=== PATIENT | male | born 1950 | race Caucasian/White ===

== ENCOUNTER 2020-02-03 11:37 | Emergency (ER) | payer OTHER ==
[~2020-02-03] VITALS: Ht 170.2 cm; Wt 68.0 kg
[2020-02-03 12:34] LABS: ABSOLUTE NEUTROPHILS 3.8 thou/uL (1.4-8.2); BASOPHILS 0.6 % (0.0-2.0); EOSINOPHILS 0.8 % (0.0-3.0); HEMATOCRIT 32.4 % (42.0-52.0); HEMOGLOBIN 11.3 gm/dL (14.0-18.0); LYMPHOCYTES 12.9 % (24.0-44.0); MCH 38.7 pg (26.0-34.0); MCHC 34.9 g/dL (28.0-37.0); MCV 111.1 fL (80.0-100.0); MONOCYTES 6.1 % (1.0-8.0); PLATELET COUNT 105 thou/uL (150-400); POLYS 79.6 % (36.0-66.0); RBC 2.91 mil/uL (4.50-6.00); WBC 4.7 thou/uL (4.0-11.0)
[2020-02-03 12:43] LABS: CALCIUM 8.4 mg/dL (8.5-10.1); CREATININE 1.1 mg/dL (0.7-1.3); POTASSIUM 4.7 mmol/L (3.5-5.1)
[2020-02-03 12:56] LABS: ALBUMIN 2.9 g/dL (3.4-5.0); DIRECT BILIRUBIN 0.1 mg/dL (<0.1-0.2); TOTAL BILIRUBIN 0.7 mg/dL (0.2-1.0); TOTAL PROTEIN 6.8 g/dL (6.4-8.2)
[2020-02-03 13:08] LABS: MACROCYTES 3+
[2020-02-03 14:26] LABS: URINE BILIRUBIN NEGATIVE (Negative); URINE BLOOD NEGATIVE (Negative); URINE CLARITY CLEAR; URINE COLOR YELLOW; URINE GLUCOSE-RANDOM* TRACE (Negative); URINE KETONES NEGATIVE (Negative); URINE LEUKOCYTES-REFLEX NEGATIVE (Negative); URINE NITRITE-REFLEX NEGATIVE (Negative); URINE PROTEIN (DIPSTICK) NEGATIVE (Negative); URINE SPECIFIC GRAVITY >= 1.030 (1.005-1.035); URINE UROBILINOGEN 0.2 E.U./dl (0.2-1.0)
[2020-02-03 16:25] VITALS: BP 140/84
--- NOTE | 2020-02-05 08:42 | EKG ---
[facility] [address] [address] [place] [address] ELECTROCARDIOGRAM REPORT Name: LOYD CHAVARRIA Room #: DEP [facility]#: [id number] Admission: 02/03/20 Attend Phys: Discharge: 02/03/20 Date of : 52 Report #: [id number] THIS REPORT FOR: cc: Wes Chambers David J. DO Lundgren, Craig H. MD [facility] ~ THIS REPORT FOR: //name// [facility] ED Test Date: 2020-02-03 Test Time: 12:29:54 Pat Name: LOYD CHAVARRIA Department: Room: Gender: Computer Meteorologist: KKMCKENZIE : 1950 Requested By: Josefina Mcbride Order Number: [id number] MD: Mac Greenwood Measurements Intervals [place] Rate: 83 P: 43 [place]: 211 QRS: 39 QRSD: 90 T: 48 QT: 364 QTc: 428 Interpretive Statements Sinus rhythm Abnormal R-wave progression, early transition Compared to ECG 08/24/2007 02:15:36 Atrial fibrillation no longer present Electronically Signed On 02-05-2020 8:40:25 CDT by Mac Greenwood [email or web address] <ELECTRONICALLY SIGNED> By: Mac Greenwood MD, FACC 02/05/20 0840 1229 1229 Mac Greenwood MD, [facility] /EPI
== END 2020-02-03 16:25 | disposition home or self-care (01) ==
LOC: ER 11:37
PROVIDERS: Emergency Medicine
DX: S22.088A Other fracture of T11-T12 vertebra, initial encounter for closed fracture (principal); I95.1 Orthostatic hypotension; E87.1 Hypo-osmolality and hyponatremia; R22.41 Localized swelling, mass and lump, right lower limb; W18.30XA Fall on same level, unspecified, initial encounter; Y93.89 Activity, other specified; Y92.89 Other specified places as the place of occurrence of the external cause; Y99.9 Unspecified external cause status

== ENCOUNTER 2020-04-03 16:14 | Inpatient (IN) | payer OTHER ==
[~2020-04-03] VITALS: Ht 175.3 cm; Wt 66.4 kg
[2020-04-03 16:34] VITALS: BP 116/71
[2020-04-03] MEDS ORDERED: NOHOMEMEDICATIONS (16:45)
[2020-04-03 17:53] LABS: HEMATOCRIT 25.5 % (42.0-52.0); HEMOGLOBIN 8.9 gm/dL (14.0-18.0); MCH 41.9 pg (26.0-34.0); MCHC 35.1 g/dL (28.0-37.0); MCV 119.4 fL (80.0-100.0); PLATELET COUNT 113 thou/uL (150-400); RBC 2.13 mil/uL (4.50-6.00); RDW 16.2 % (10.5-14.5); WBC 4.2 thou/uL (4.0-11.0)
[2020-04-03 18:07] LABS: CALCIUM 8.1 mg/dL (8.5-10.1); CREATININE 1.2 mg/dL (0.7-1.3); POTASSIUM 3.7 mmol/L (3.5-5.1)
[2020-04-03 18:13] LABS: ALBUMIN 2.2 g/dL (3.4-5.0); TOTAL BILIRUBIN 2.5 mg/dL (0.2-1.0)
[2020-04-03 18:18] LABS: ABSOLUTE NEUTROPHILS 3.4 thou/uL (1.4-8.2); ANISOCYTOSIS 1+
[2020-04-03 18:19] LABS: MACROCYTES 2+; POLYCHROMASIA OCCASIONAL
[2020-04-03 18:22] LABS: URINE BILIRUBIN 2+ (Negative); URINE BLOOD NEGATIVE (Negative); URINE CLARITY CLEAR; URINE COLOR ORANGE; URINE GLUCOSE-RANDOM* 3+ (Negative); URINE KETONES NEGATIVE (Negative); URINE LEUKOCYTES-REFLEX NEGATIVE (Negative); URINE NITRITE-REFLEX NEGATIVE (Negative); URINE PROTEIN (DIPSTICK) NEGATIVE (Negative); URINE UROBILINOGEN >= 8.0 E.U./dl (0.2-1.0)
[2020-04-03 18:26] LABS: ICTOTEST (BILI CONFIRMATORY) Positive (Negative)
[2020-04-03 18:37] LABS: BACTERIA-REFLEX 1-9 Few /HPF (None Seen); CASTS None Seen /LPF (None Seen); CRYSTALS None Seen /LPF (None Seen); SQUAMOUS 0-3 Few /LPF (0-3); URINE RBC None Seen /HPF (0-2); URINE WBC-REFLEX None Seen /HPF (0-5)
[2020-04-03 19:50] LABS: CHOLESTEROL 145 mg/dL (<200); HDL CHOLESTEROL 5 mg/dL (>40); LDL CHOLESTEROL 111 mg/dL (<100); TRIGLYCERIDE 148 mg/dL (<150); VLDL 30 mg/dL (<40)
[2020-04-03 20:10] VITALS: BP 116/71
[2020-04-03 20:36] VITALS: BP 140/85
[2020-04-03 20:55] VITALS: BP 124/71
--- NOTE | 2020-04-04 05:00 | NUR ---
Pt admitted approx 2044 from ED via cart. A/OX4,pleasant and cooperative with cares. VSS. Denied pain on assessment. Pt reports he has not been able to walk for about a month d/t weakness but normally uses a RW to ambulate prior to that,has a sore on left buttock d/t sitting down for long periods;wound care done and dressed in foam dsg, wound care cordinator consulted. Pt voiding per urinal w/o any problems. IVF infusing via LFA,needs a lot of encouragement for PO intake w/o success d/t no desire to eat. SR on telemetry. Fall precautions implemented,pt reminded to call before attempting to get up from bed and agrees to. Will continue to monitor pt.
--- NOTE | 2020-04-04 07:34 | EKG ---
[facility] [place] [address] [place] [address] ELECTROCARDIOGRAM REPORT Name: LOYD CHAVARRIA Room #: 460-P ADM IN M.R.#: [id number] Admission: 04/03/20 Attend Phys: Ghulam Mujica MD Discharge: Date of : 52 Report #: [id number] THIS REPORT FOR: cc: Wes Chambers David J. DO Lundgren, Craig H. MD [facility] ~ THIS REPORT FOR: //name// [facility] ED Test Date: 2020-04-03 Test Time: 17:01:54 Pat Name: LOYD CHAVARRIA Department: Room: [facility] Gender: M Manager Financial Services: MURRAY ARRINGTON : 1950 Requested By: Edyta Garibay Order Number: [id number] MD: Mac Greenwood Measurements Intervals [place] Rate: 95 P: 40 CT: 193 QRS: 40 QRSD: 89 T: 39 QT: 348 QTc: 438 Interpretive Statements Sinus rhythm Nonspecific ST segment abnormality Baseline wander in lead(s) V4 Compared to ECG 02/03/2020 12:29:54 No significant change was found Electronically Signed On 04-04-2020 7:33:46 CDT by Mac Greenwood [email or web address] <ELECTRONICALLY SIGNED> By: Mac Greenwood MD, [facility] 04/04/20 0733 1701 170 Mac Greenwood MD, [facility] /EPI
[2020-04-04 07:50] VITALS: BP 130/67
[2020-04-04 08:06] LABS: HEMATOCRIT 25.7 % (42.0-52.0); HEMOGLOBIN 8.9 gm/dL (14.0-18.0); MCH 41.5 pg (26.0-34.0); MCHC 34.5 g/dL (28.0-37.0); MCV 120.3 fL (80.0-100.0); RBC 2.14 mil/uL (4.50-6.00); RDW 16.3 % (10.5-14.5); WBC 2.9 thou/uL (4.0-11.0)
[2020-04-04 08:15] LABS: CALCIUM 7.8 mg/dL (8.5-10.1); CREATININE 0.7 mg/dL (0.7-1.3); MAGNESIUM 1.3 mg/dL (1.8-2.4); POTASSIUM 3.2 mmol/L (3.5-5.1)
--- NOTE | 2020-04-04 10:38 | NUR ---
WOUND CONSULT; THE WOUND WAS ASSESSED BY MYSELF AND AURELIO MCGILL. THERE IS A .5 X .5 X 0.1 TO THE RIGHT BUTTOCKS. SCANT AMOUT OF SEROUS DRAINAGE. NO ERYTHEMA OR TENDERNESS. THE PATIENTS HEALTH HAS BEEN IN DECLINE FOR A MONTH OR SO PATIENT STATES AND HE HAS BEEN IN BED ALL THE TIME. RECOMMENDATION; 1- XEROFORM GAUZE TO WOUND BED,COVER WITH A SMALL BORDER FOAM, M/W/F PRN DISCUSSED WITH WYATT
[2020-04-04 12:35] LABS: % SATURATION 113 % (20-39); IRON 103 ug/dL (65-175); TIBC 91 ug/dL (250-450)
[2020-04-04 12:38] LABS: INR 1.1; PROTIME 11.3 Seconds (9.3-11.4)
--- NOTE | 2020-04-04 13:40 | NUR ---
PT ADMITTED RELATED TO HYPONATREMIA. CM REVIEWED CHART AND SPOKE WITH CARE TEAM. CM CALLED AND SPOKE WITH PT THIS DAY. PT APPEARED TO BE A&O X4. CM ROLE INTORDUCED. PT INDICATED HE LIVES ALONE IN A HOUSE WITH 2 STEPS TO ENTER AND NO STEPS HE USES INSIDE. 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 PT INDICATED HIS SON MALAIKA CHECKS ON HIM REGULARLY. PT INIDCATED NO HH HX. PT INDICATED HE HAD BEEN ABLE TO TOILET HIMSELF REFRIGERATION SYSTEM INSTALLER BUT HAD STOPPED USING TUB/SHOWER DUE TO FEAR OF FALLING NEEDS SHOWER CHAIR. PT INIDCATED HE PLANS TO RETURN HOME ONCE MEDICALLY STABLE AND MIGHT BE RECEPTIVE TO HH SERVICES UPON DC. CM TO FOLLOW INDICATED WITH DC PLANNING.
[2020-04-04 15:00] VITALS: BP 122/70
--- NOTE | 2020-04-04 19:29 | NUR ---
ASSUMED CARE OF PATIENT AT 0700. ASSESSMENT COMPLETED. PATIENT DENIES ANY TREMORS, ANXIOUSNESS OR HEADACHE. ACCU CHECK AC&HS WITH SUPPLEMENTATION OF INSULIN AT DINNER. MAGNESIUM REPLACED. SEEN BY WOUND CARE. WORKED WITH PT/OT. PT TO GO NPO AT MIDNIGHT FOR ANTICIPATION OF US AND EGD TOMORROW. PATIENT DENIES ANY PAIN OR DISCOMFORT. PATIENT TO CONTINUE WITH POC.
[2020-04-04 19:45] VITALS: BP 106/89
[2020-04-05 00:06] LABS: HAV IgM AB (ANTI-HAV IgM) Negative (Negative); HEPATITIS B SURFACE AG Negative (Negative); HEPATITIS C VIRUS AB 0.1 (0.0-0.9)
--- NOTE | 2020-04-05 04:14 | NUR ---
ASSUMED CARE OF PT AT 1900HRS. PT AOX4 ADN LETS NEEDS BE KNOWN. FALL PRECAUTION IN PLACE. PT DENIED PAIN, NAUSEA OR SOA. PT RUNNING SR ON TELE. PT PLACED NPO AT IN FOR PROCEDURE IN THE AM. VSS AND NO S/S OF ETOH WITHDRAWAL AT THIS TIME. WILL CONTINUE TO MONITOR FOR CHANGES.
[2020-04-05 05:07] LABS: IgG 1155 mg/dL (603-1613)
[2020-04-05 05:16] VITALS: BP 131/81
[2020-04-05 06:03] LABS: ALBUMIN 1.8 g/dL (3.4-5.0); CALCIUM 7.8 mg/dL (8.5-10.1); CREATININE 0.9 mg/dL (0.7-1.3); DIRECT BILIRUBIN 1.4 mg/dL (<0.1-0.2); POTASSIUM 3.4 mmol/L (3.5-5.1); TOTAL PROTEIN 5.4 g/dL (6.4-8.2)
[2020-04-05 07:32] VITALS: BP 136/76
[2020-04-05 09:28] VITALS: BP 136/76
[2020-04-05 11:56] VITALS: BP 141/74
[2020-04-05 13:08] LABS: ANA INTERPRETATION Negative (Negative)
--- NOTE | 2020-04-05 15:12 | NUR ---
PT HAD EGD THIS DAY. CARE TEAM INDICATED THAT PT WOULD BENEFIT FROM HOME HEALTH SERVICES. PT INDICATED NO PREFERENCE FOR PROVIDER SO REFERRAL WAS SENT TO [facility]. CARE TEAM INDICATED THAT PT WILL LIKELY BE MEDICALLY BE MEDIALLY STABLE TO [place] HOME TOMORROW. FAX ORDERS TO CALL . PT HAS ALL RECOMMENDED DME. PT PROVIDED WITH INFO TO WHERE TO GET A SHOWER CHAIR/BENCH. CM ABLE TO ASSIST SHOULD ANY OTHER CM INTERVENTION BE NEEDED.
--- NOTE | 2020-04-05 15:26 | NUR ---
ASSUMED CARE OF PATIENT AT SHIFT CHANGE. ASSESSMENT CHARTED. VSS. PATIENT DENIES PAIN AT THIS TIME. PATIENT WENT DOWN FOR AN EGD TODAY. RETURNED TO UNIT AT APPROX. 1500.
[2020-04-05 16:06] LABS: CERULOPLASMIN 20.7 mg/dL (16.0-31.0)
[2020-04-05 16:33] VITALS: BP 128/77
[2020-04-05 20:49] VITALS: BP 123/100
--- NOTE | 2020-04-06 05:52 | NUR ---
ASSUMED PT CARE AT 1925. PT IS A&O X4. IV IN THE L FOREARM. PT BS WAS 150, NO INDICATION FOR INSULIN. PT STATES THAT HE IS NOT IN PAIN. PT IS ON TALKING TO FAMILY/FRIENDS ON THE COMPUTER. PT IS RESTING IN HIS ROOM. WILL CONTINUE TO MONITOR.
[2020-04-06 06:33] LABS: ALBUMIN 1.8 g/dL (3.4-5.0); CALCIUM 7.8 mg/dL (8.5-10.1); CREATININE 0.7 mg/dL (0.7-1.3); DIRECT BILIRUBIN 1.5 mg/dL (<0.1-0.2); POTASSIUM 3.5 mmol/L (3.5-5.1); TOTAL BILIRUBIN 2.3 mg/dL (0.2-1.0); TOTAL PROTEIN 5.2 g/dL (6.4-8.2)
[2020-04-06 07:49] VITALS: BP 140/74
[2020-04-06] MEDS ORDERED: PANTOPRAZOLE SO40 M1 PO (10:29)
[2020-04-06] MEDS ORDERED: PRENATAL PO (10:29)
[2020-04-06 11:30] VITALS: BP 140/74
--- NOTE | 2020-04-06 12:31 | NUR ---
Assumed pt care this am, VS stable diet and medications are tolerated well. Insuling refused in the am, seen by hospitalist, son was at the beside. Wound care done but refused to reopen for dc pictures. POC followed with no signs or verbalizations of distress noted, SCD was placed on this am. Seen by hospitalist, dc orders given, instructions given to the pt and son. IV removed. Pt is now dc and was taken home by the son.
--- NOTE | 2020-04-09 17:06 | PATH ---
[facility] [place] [address] [address] [place] [address] PATHOLOGY RPT PROCEDURE Name: DANIEL FITZPATRICK Ralf Room #: 460-P DIS IN M.R.#: [id number] Admission: 04/03/20 Date of : 52 Discharge: 04/06/20 Report #: [id number] Path Case #: [id number] [facility] Accession Number: [id number] . 01 Material submitted: . stomach - BX OF GASTRITIS . 01 Clinical history: . r/o h pylori . 02 Diagnosis: Gastric mucosa, gastritis, rule out H. pylori, endoscopic biopsy: - Mild reactive gastropathy with scattered foci of chronic inflammation. - Negative for intestinal metaplasia or atrophy. - Negative for Helicobacter pylori (properly-controlled immunohistochemical stain performed). . (IUV:mml; 04/09/2020) QLM 04/09/2020 1443 Local . 02 Electronically signed: . Sandrita French MD, Pathologist NPI- [id number] . 01 Gross description: . The specimen is received in formalin, labeled "Daniel Fitzpatrick BX of gastritis" and consists of multiple fragments of simon tissue measuring 0.8 x 0.8 x 0.3 cm in aggregate which are entirely submitted in A1. (SDY; 04/08/2020) SYU/SYU 04/08/2020 1244 Local . 02 Pathologist provided ICD-10: K31.9, K29.50 . 02 CPT . 406046, U44007 Specimen Comment: A courtesy copy of this report has been sent to [phone], [phone] Specimen Comment: [phone], Specimen Comment: Report sent to , Dr. BALL / Performed at: [address] [id number] MD Aniket Ko MD Phone: [phone] Performed at: [address] [id number] [address] [address] PATHOLOGY RPT PROCEDURE Name: DANIEL FITZPATRICK Room #: 460-P DIS IN M.R.#: [id number] Admission: 04/03/20 Date of : 52 Discharge: 04/06/20 Report #: [id number] Path Case #: [id number] MD Sandrita French MD Phone: [phone]
--- NOTE | 2020-04-11 09:01 | P ---
[facility] [place] [address] [place] [address] PROCEDURE REPORT Name: LOYD CHAVARRIA Room #: 460-P [facility] IN ..#: [id number] Admission: 04/03/20 Attend Phys: Barrett Chaparro MD Discharge: 04/06/20 Date of : 52 Report #: [id number] THIS REPORT FOR: cc: Wes Chambers David J. DO Thesing, John A. MD ~ CC: Barrett Chambers DO INPATIENT UPPER ENDOSCOPY REPORT BRIEF HISTORY: The patient is a 70-year-old male with a history of alcohol abuse, who reports recent dark stools and he is anemic. PREOPERATIVE DIAGNOSES: Anemia and gastrointestinal blood loss and alcohol abuse. POSTOPERATIVE DIAGNOSES: 1. Moderately severe gastritis, likely secondary to alcohol. 2. No esophageal varices. MEDICATIONS: Deep sedation with propofol per Anesthesia. SPECIMEN: Biopsies of gastritis. ESTIMATED BLOOD LOSS: 3 mL. PROCEDURE: EGD with biopsy. FINDINGS: Prior to propofol sedation, procedure of upper endoscopy discussed with the patient as well as all potential risks and its complications. He indicates he understands and desires to proceed. DESCRIPTION OF PROCEDURE: With the patient in left lateral decubitus position, the Olympus video endoscope was inserted into the cervical esophagus under direct vision without difficulty. Examination of this organ through its entire length revealed normal esophageal mucosa down to the squamocolumnar junction. It is noteworthy that esophageal varices were not seen in this patient who abuses alcohol. The esophageal mucosa was normal. No ulcers or erosions were seen. No bleeding lesions were seen. Hiatus hernia was not seen. The scope was advanced into the stomach, was examined on end view as well as retroflexed views. There was a pattern of gastritis. The mucosa, however, was intact. No ulcers or erosions were seen. Upon retroflexion, no mass lesions were seen. A significant hiatus hernia was not seen. The pylorus, duodenal bulb and post-coronary sweep were inspected and noted to be unremarkable. At that point, the scope was slowly withdrawn and careful circumferential views confirmed the [facility] [address] [place] [address] PROCEDURE REPORT Name: LOYD CHAVARRIA Room #: 460-P [facility] IN M.R.#: [id number] Admission: 04/03/20 Attend Phys: Barrett Chaparro MD Discharge: 04/06/20 Date of : 52 Report #: [id number] above findings. The patient tolerated the procedure well. DISPOSITION: Multiple biopsies were obtained to evaluate his gastritis. I do not see bleeding lesions at this point in time. We will follow up on biopsies. Advised the patient to avoid use of alcohol. I do not see a source of GI blood loss. Colonoscopy would be beneficial in this patient as well. <ELECTRONICALLY SIGNED> By: Yaya Mahmood MD 04/11/20 0901 1432 1845 Yaya Mahmood MD /nt
== END 2020-04-06 12:36 | disposition home health service (06) | DRG 640 ==
LOC: ER 16:14 → EROBS 19:19 → 4W 19:19
PROVIDERS: Nurse Practitioner; Nurse Practitioner Family; Physician Assistant; ADMIT Hospitalist; ATTEND Hospitalist
PROC: 0DB68ZX Excision of Stomach, Via Natural or Artificial Opening Endoscopic, Diagnostic (ICD-10-PCS; principal; 2020-04-05)
DX: E87.1 Hypo-osmolality and hyponatremia (principal); K29.21 Alcoholic gastritis with bleeding; E87.6 Hypokalemia; E11.9 Type 2 diabetes mellitus without complications; R74.0 Nonspecific elevation of levels of transaminase and lactic acid dehydrogenase [LDH]; D64.9 Anemia, unspecified; E78.5 Hyperlipidemia, unspecified; F10.20 Alcohol dependence, uncomplicated; Y90.9 Presence of alcohol in blood, level not specified; I10 Essential (primary) hypertension; K44.9 Diaphragmatic hernia without obstruction or gangrene; G47.00 Insomnia, unspecified; D69.59 Other secondary thrombocytopenia; K70.10 Alcoholic hepatitis without ascites; E83.42 Hypomagnesemia; Z60.2 Problems related to living alone; Z87.891 Personal history of nicotine dependence; Z87.01 Personal history of pneumonia (recurrent); Z03.818 Encounter for observation for suspected exposure to other biological agents ruled out
CPT/HCPCS: 10045; 10047; 62110; 62900; 70005